=== PATIENT | female | born 1955 | race Caucasian/White ===

== ENCOUNTER 2020-04-07 00:05 | Emergency (ER) | payer OTHER ==
[~2020-04-07] VITALS: Ht 167.6 cm; Wt 102.1 kg
--- NOTE | 2020-04-07 00:10 | NUR ---
Placed in room 8 . Placed on education director, blood pressure machine and pulse oximeter. To gown for exam. Side rails up.
--- NOTE | 2020-04-07 00:12 | NUR ---
ER at bedside examining patient.
--- NOTE | 2020-04-07 00:15 | NUR ---
Pt presents to the ER c/o of dizzness, midsternal pain and n/v x today. Pt reports going to [place] last night and possibly causing her upset stomach. Pt denies diarrhea, cp sob or sick contacts.
[2020-04-07 00:30] VITALS: BP_SYST 146
[2020-04-07] MEDS ORDERED: NACL 0.9% 1,000 ML IV ONE (00:40)
[2020-04-07] MEDS ORDERED: ONDANSETRON HCL 4 MG/2 ML VIAL IVP ONE ×2 (00:45→01:15)
[2020-04-07] MEDS ORDERED: KETOROLAC TROMETHAMINE 30 MG VIAL IVP ONE (01:30)
[2020-04-07 01:41] LABS: BILIRUBIN,URINE NEGATIVE (NEGATIVE); BLOOD, URINE 1+ (NEGATIVE); CLARITY/URINE SL CLOUDY (CLEAR); COLOR,URINE YELLOW (YELLOW); GLUCOSE,URINE NEGATIVE (NEGATIVE); KETONES,URINE 2+ (NEGATIVE); LEUKOCYTE ESTERASE ,URINE NEGATIVE (NEGATIVE); NITRITE, URINE NEGATIVE (NEGATIVE); PROTEIN URINE 1+ (NEGATIVE)
[2020-04-07 01:47] LABS: BASOPHILS % (AUTO) 0.2 % (0.0-2.0); CALCIUM 9.2 mg/dL (8.4-11.0); CREATININE 0.93 mg/dL (0.55-1.30); EOSINOPHILS % (AUTO) 0.1 % (0.0-4.0); HEMATOCRIT 45.3 % (36-48); HEMOGLOBIN 15.3 g/dL (12.0-16.0); LYMPHOCYTES # (AUTO) 1.2 K/uL (1.0-5.5); LYMPHOCYTES % (AUTO) 6.9 % (20.5-51.5); MEAN CORPUSCULAR HEMOGLOBIN 30 pg (27-31); MEAN CORPUSCULAR HGB CONC 34 % (32-36); MEAN CORPUSCULAR VOLUME 90 fL (79.0-98.0); MONOCYTES # (AUTO) 0.8 K/uL (0.0-1.0); MONOCYTES % (AUTO) 4.5 % (1.7-9.3); NEUTROPHILS # (AUTO) 15.7 K/uL (1.8-7.7); NEUTROPHILS % (AUTO) 88.3 % (40.0-70.0); PLATELET COUNT (AUTO) 335 K/uL (130-430); POTASSIUM 3.7 mmol/L (3.5-5.1); RED BLOOD CELL COUNT(AUTO) 5.06 MIL/uL (4.2-6.2); RED CELL DISTRIBUTION WIDTH 13.8 % (9.0-15.0); WHITE BLOOD COUNT (AUTO) 17.8 K/uL (4.8-10.8)
[2020-04-07 01:52] LABS: ALBUMIN 3.8 g/dL (3.4-4.8); TOTAL BILIRUBIN 0.5 mg/dL (0.0-1.0)
[2020-04-07 01:58] LABS: BACTERIA,URINE FEW /HPF (None Seen); WBC,URINE 0-3 /HPF (0-3)
--- NOTE | 2020-04-07 03:00 | NUR ---
Patient resting, symetric chest rise and fall. No complaints at this time. Pt easily aroused.
--- NOTE | 2020-04-07 03:30 | NUR ---
Patient able to tolerate fluids by mouth.
[2020-04-07] MEDS ORDERED: POTASSIUM CHLORIDE 20 MEQ TAB.PRT.SR PO ONE (03:45)
[2020-04-07] MEDS ORDERED: MAGNESIUM SULFATE 50 ML IV ONE (03:45)
--- NOTE | 2020-04-07 04:00 | NUR ---
Patient requesting to ambulate to bathroom. Pt assisted to bathroom.
[2020-04-07] MEDS ORDERED: MECLIZINE HCL 25 MG TABLET (ANITVERT) PO ONE (04:45)
--- NOTE | 2020-04-07 06:35 | NUR ---
Pt taken to CT via wheelchair accompained by Xavier.
--- NOTE | 2020-04-07 06:46 | NUR ---
Pt returned from CT scan via wheelchair, w/ Xavier.
--- NOTE | 2020-04-07 07:20 | NUR ---
Patient given written and verbal discharge instructions and verbalizes understanding. ER MD discussed with patient the results and treatment provided. Patient in stable condition. ID arm band removed. IV catheter removed intact and dressing applied, no active bleeding. Rx of antivert and zofran given. Patient educated on pain management and to follow up with PMD. Pain Scale 0/10. Opportunity for questions provided and answered. Medication side effect fact sheet provided.
[2020-04-07 07:22] VITALS: BP_SYST 148
--- NOTE | 2020-04-07 07:31 | NUR ---
pt refusing to leave room until arrives to take her home.
--- NOTE | 2020-04-07 08:20 | NUR ---
arrived. pt taken to vehicle in W/C and discharged home in stable condition.
== END 2020-04-07 07:22 | disposition home or self-care (01) ==
LOC: SED 00:05
DX: R10.13 Epigastric pain (principal); R11.10 Vomiting, unspecified; R19.7 Diarrhea, unspecified; Z88.1 Allergy status to other antibiotic agents
CPT/HCPCS: 36415; 70450; 80053; 81000; 83690; 85025; 93005; 96365; 96366; 96375; 96376; 99285; J1885; J2405; J3475; J7030; J8597

== ENCOUNTER 2020-04-09 11:04 | Inpatient (IN) | payer OTHER, SELFPAY ==
[~2020-04-09] VITALS: Ht 170.2 cm; Wt 112.0 kg
[2020-04-09 11:05] VITALS: BP_SYST 134
--- NOTE | 2020-04-09 11:05 | NUR ---
BROUGHT BACK TO BED #8 VIA WHEELCHAIR, PLACED IN BED #8 AND TRIAGED. REPORT GIVEN TO DOROTHEA
--- NOTE | 2020-04-09 11:11 | NUR ---
DR ZAMUDIO AT BEDSIDE FOR EVALUATION
--- NOTE | 2020-04-09 11:30 | NUR ---
Note undone in EDM - 04/09/20 at 1202 by SDEDTD Patient presented to ER C/O medical clearance. Patient ambulatory to ER, afebrile, skin pink & warm, pain 9/10, nausea, vomiting, denies diarrhea, constipation. Patient states she was seen at [facility] ER, referred by Dr. Zavala for MRI. Pt states she does not have PMD and tingling to right jaw.
--- NOTE | 2020-04-09 11:30 | NUR ---
Patient presented to ER C/O medical clearance. Patient ambulatory to ER, afebrile, skin pink & warm, pain 03/19,denies N/V/D. Patient states she was seen at [facility] ER, referred by Dr. Zavala for MRI. Pt states she does not have PMD and tingling to right jaw.
--- NOTE | 2020-04-09 12:02 | NUR ---
Report to Isma LANDEROS
--- NOTE | 2020-04-09 12:18 | NUR ---
PT BEING TAKEN TO MRI TESTING VIA WHEELCHAIR
--- NOTE | 2020-04-09 12:50 | NUR ---
Assumed nursing care
--- NOTE | 2020-04-09 12:59 | NUR ---
RETURNED FROM RADIOLOGY VIA WHEELCHAIR BACK TO ROOM #8
[2020-04-09] MEDS ORDERED: ASPIRIN 325 MG TABLET PO ONE (13:45)
[2020-04-09 13:57] LABS: BASOPHILS # (AUTO) 0.1 K/uL (0.0-0.2); BASOPHILS % (AUTO) 1.4 % (0.0-2.0); EOSINOPHILS # (AUTO) 0.3 K/uL (0.0-0.4); EOSINOPHILS % (AUTO) 3.1 % (0.0-4.0); HEMOGLOBIN 14.6 g/dL (12.0-16.0); MEAN CORPUSCULAR HEMOGLOBIN 30 pg (27-31); MEAN CORPUSCULAR HGB CONC 34 % (32-36); MEAN CORPUSCULAR VOLUME 89 fL (79.0-98.0); MONOCYTES # (AUTO) 0.7 K/uL (0.0-1.0); MONOCYTES % (AUTO) 6.8 % (1.7-9.3); NEUTROPHILS # (AUTO) 7.2 K/uL (1.8-7.7); NEUTROPHILS % (AUTO) 69.7 % (40.0-70.0); PLATELET COUNT (AUTO) 266 K/uL (130-430); RED BLOOD CELL COUNT(AUTO) 4.81 MIL/uL (4.2-6.2); RED CELL DISTRIBUTION WIDTH 13.2 % (9.0-15.0); WHITE BLOOD COUNT (AUTO) 10.3 K/uL (4.8-10.8)
--- NOTE | 2020-04-09 14:05 | NUR ---
raoid covid swab collected and sent to the lab
[2020-04-09 14:14] LABS: ANION GAP 5 (5-15); CALCIUM 8.6 mg/dL (8.4-11.0); CHLORIDE 104 mmol/L (98-107); CREATININE 0.88 mg/dL (0.55-1.30); GLUCOSE 105 mg/dL (70-99); SODIUM SERUM 137 mmol/L (136-145); UREA NITROGEN, BLOOD 13 mg/dL (8-21)
[2020-04-09 14:19] LABS: GFR AFRICAN AMERICAN 83 mL/min (>90)
--- NOTE | 2020-04-09 15:00 | NUR ---
# 20 gauge angiocath placed to LEFT HAND . Use of asceptic technique. Opsite placed over site. Blood return noted. Blood for lab drawn from site. Flushed with 10 cc of normal saline. No evidence of infiltration noted. Patient tolerated well.
[2020-04-09] MEDS ORDERED: ASPIRIN 81 MG TAB.CHEW PO ONE (15:15)
--- NOTE | 2020-04-09 15:18 | NUR ---
SPOKE W/ SARAH ALEXANDER IN [facility]. CURRENTLY WAITING FOR A BED ASSIGNMENT
[2020-04-09] MEDS ORDERED: MECL-160 PO (15:40)
[2020-04-09] MEDS ORDERED: ONDA4TAB5 PO (15:40)
--- NOTE | 2020-04-09 15:40 | NUR ---
Medication reconciliation completed with information provided by the pt. Any prior medication reconciliation on file was reviewed and corrected.
--- NOTE | 2020-04-09 15:42 | NUR ---
Patient will be admitted to care of . Admitted to tele unit. Will go to room 8. Belongings list completed. Complete and up to date summary report printed. SBAR report to be given at bedside with opportunity for questions. bedside report to be given
--- NOTE | 2020-04-09 15:48 | NUR ---
ADMIT NOTE Received pt from ER to the floor with a diagnosis of cerebellar stroke. Admission process initiated. patient oriented to pain management, safety and call light-teach back done.
--- NOTE | 2020-04-09 16:11 | NUR ---
CONSULTATION PAGED REASON FOR CONSULTATION:STROKE WAS CONSULT CALLED?Y PERSON WHO WAS NOTIFIED:HOSSEIN HERNANDEZ PAGER PAGED CONSULTING PHYSICIAN:HOSSEIN HERNANDEZ TRACK MAN SPECIALTY:NEURO TRACK MAN PHONE NUMBER:[phone] ORDERING PHYSICIAN:/KARTHIK OLMSTEAD
[2020-04-09 16:31] VITALS: BP_SYST 147
--- NOTE | 2020-04-09 17:01 | NUR ---
OPENING NOTE: Received patient from ED. Patient was recently seen in ED for N/V and abd pain. Admitted today for dizziness and vertigo. Patient is alert awake oriented x 4. Able to make needs known. Vitals BP 147/104, HR 74, R 18, 99% saturation. SR on the heart monitor. Will continue to monitor patient closely.
--- NOTE | 2020-04-09 18:28 | NUR ---
CLOSING NOTE Patient remains stable. Ambulated to the rest room x 2. Voiding well. Tolerated dinner. Aspirin 81 mg given to patient. All extremities are strong. No weakness noted. SR on the heart monitor. Will endorse to oncoming shift.
[2020-04-09] MEDS ORDERED: MECLIZINE HCL 25 MG TABLET (ANITVERT) PO PRN (19:45)
[2020-04-09] MEDS ORDERED: ONDANSETRON 4 MG ODT TAB PO PRN (19:45)
--- NOTE | 2020-04-09 19:45 | NUR ---
INITIAL NOTES: PT IS AWAKE, ALERT,ORIENTED X 4, VITAL SIGN ARE STABLE. NO PAIN, ROOM AIR, AMBULATTORY WITH STEADY GAIT. EXPLAIN PLAN OF CARE. CALL MADE TO DR. OLMSTEAD AND PT SPEAK TO THE MD.
--- NOTE | 2020-04-09 20:15 | NUR ---
RECEIVED CALL FROM DR. Smita LONG- REPORT GIVEN TO AND MRI RESULT, STATED HE WILL SEE THE PT AND ORDER ASPIRIN 81 MG DAILY POI.
--- NOTE | 2020-04-09 20:22 | NUR ---
AFTER MD AND PATIENT TALK TO EACH OTHER. MD ORDER TO DISCHARGE THE PT HOME.
[2020-04-09 20:28] VITALS: BP_SYST 157
--- NOTE | 2020-04-09 20:56 | NUR ---
D/C Patient Patient given medication reconciliation form and D/C instructions. Exit Care provided. Patient verbalized understanding. MD discussed with patient the results and treatment provided thru phone. Ambulatory with steady gait for discharge to home. Patient in stable condition, ID band removed. IV catheter removed, intact and dressing applied, no active bleeding. Patient educated on pain management and follow-up with her neurology. All belongings sent with patient.
[2020-04-10] MEDS ORDERED: ASPIRIN 81 MG TABLET(ECOTRIN) PO SCH (09:00)
--- NOTE | 2020-04-16 16:24 | NUR ---
Discharge Follow Up Phone Call Phoned patient, . Patient stated she was doing okay but still having some vertigo and loss of taste. Her assists when needed. Covid test was negative. She has a follow up appointment with neuro Dr Jackson on 04/22/20. She has no PCP. She has some recommendations to follow up. She was very happy with the care and follow up provided by Dr Soto. She was very happy with her nursing and ED care at [facility].
== END 2020-04-09 20:56 | disposition home or self-care (01) | DRG 66 ==
LOC: SED 11:04 → STU 15:08
PROVIDERS: ADMIT Internal Medicine; ATTEND Internal Medicine
DX: I63.9 Cerebral infarction, unspecified (principal); Z20.828 Contact with and (suspected) exposure to other viral communicable diseases; Z88.1 Allergy status to other antibiotic agents; Z88.8 Allergy status to other drugs, medicaments and biological substances
CPT/HCPCS: 36415; 70450-TC; 70551; 80048; 80053; 81000-TC; 83690-TC; 84484; 85025; 93005; 99285; G0378